=== PATIENT | male | born 1950 | race Caucasian/White ===

== ENCOUNTER → 2018-01-04 | Outpatient (CLI) | payer MEDICARE ==
[2015-08-16 18:05] VITALS: BP 129/75
[~2018-01-04] MED LIST: PRED5DRO16 RIGHTEYE
--- NOTE | 2018-01-04 13:28 | RAD ---
CT head without contrast 01/04/2018 Clinical indication: Headache. COMPARISON: None. *One or more of the following individualized dose reduction techniques were utilized for this examination: 1. Automated exposure control. 2. Adjustment of the mA and/or kV according to patient size. 3. Use of iterative reconstruction technique. FINDINGS: No acute intracranial hemorrhage or extra-axial fluid collection. No midline shift. The basal cisterns are patent. The rick-white matter interfaces are maintained. The ventricles and subarachnoid spaces are normal in size and configuration for age. The mastoid air cells and visualized paranasal sinuses are well aerated. IMPRESSION: No acute intracranial hemorrhage. Electronically signed by: Jadon Yuen MD (01/04/2018 1:24 PM) [id number]
== END | disposition home or self-care (01) ==
LOC: PMG 12:31
PROVIDERS: ATTEND Family Medicine
DX: H92.03 Otalgia, bilateral (principal)
CPT/HCPCS: 70450

== ENCOUNTER → 2018-02-20 | Outpatient (CLI) | payer MEDICARE, OTHER ==
[2015-08-16 18:05] VITALS: BP 129/75
[~2018-02-20] MED LIST changes: +ASPI81TA50 PO; +ATOR10TA PO
--- NOTE | 2018-02-20 11:35 | CARD ---
MR#: [id number] Date of Study: 02/20/2018 Ordering Physician: ROCHELLE NOGUERA, Referring Physician: ROCHELLE NOGUERA, Tech: Deborah Pinto AZEB APPROVED REPORT EXAM: Two-dimensional and M-mode echocardiogram with Doppler and color Doppler. Other Information Quality : Good INDICATION Syncope 2D DIMENSIONS RVDd2.5 (2.9-3.5cm)Left Atrium(2D)3.4 (1.6-4.0cm) IVSd1.0 (0.7-1.1cm)Aortic Root(2D)3.4 (2.0-3.7cm) LVDd5.1 (3.9-5.9cm)LVOT Diameter2.0 (1.8-2.4cm) PWd1.0 (0.7-1.1cm)LVDs3.3 (2.5-4.0cm) FS (%) 35.1 %SV80.9 ml LVEF(%)64.1 (>50%) Aortic Valve AoV Peak Chidi.158.4cm/sAoV VTI33.1cm AO Peak GR.10.0mmHgLVOT Peak Chidi.106.9cm/s LVOT VTI 22.52cmAO Mean GR.5mmHg BINDU (VMAX)2.61jm0YGE (VTI)2.17cm2 AI P 1/2 Rltx842gt Mitral Valve MV E Xjfliurm00.0cm/sMV DECEL YAJY440oh MV A Cnylnkud13.9cm/sE/A Ratio0.8 Tricuspid Valve TR P. Rkojeukp929mr/sRAP SHPFMXJE4faFb TR Peak Gr.03ahRjMTZT08urXi Pulmonary Vein S1 Eiimmcop53.1cm/sD2 Ulwkjzgw68.2cm/s LEFT VENTRICLE The left ventricle is normal size. There is normal left ventricular wall thickness. The left ventricu lar systolic function is normal and the ejection fraction is within normal range. The Ejection Fracti on is 60-65%. There is normal LV segmental wall motion. Transmitral Doppler flow pattern is Grade I-a bnormal relaxation pattern. RIGHT VENTRICLE The right ventricle is normal size. The right ventricular systolic function is normal. ATRIA The left atrium size is normal. The right atrium size is normal. The interatrial septum is intact wit h no evidence for an atrial septal defect or patent foramen ovale as noted on 2-D or Doppler imaging. AORTIC VALVE The aortic valve is calcified but opens well. Doppler and Color Flow revealed mild aortic regurgitati on. There is no significant aortic valvular stenosis. MITRAL VALVE The mitral valve is calcified but opens well. Mitral annular calcification is mild. There is no evide nce of mitral valve prolapse. There is no mitral valve stenosis. Doppler and Color-flow revealed mild mitral regurgitation. TRICUSPID VALVE The tricuspid valve is normal in structure and function. Doppler and Color Flow revealed trace tricus pid regurgitation. The PA pressure was estimated at 25 mmHg. There is no tricuspid valve stenosis. PULMONIC VALVE The pulmonic valve is not well visualized. Doppler and Color Flow revealed mild pulmonic valvular reg urgitation. There is no pulmonic valvular stenosis. GREAT VESSELS The aortic root is normal in size. The ascending aorta is mildly dilated at 3.9 cm. The IVC was not v isualized. PERICARDIAL EFFUSION There is no evidence of significant pericardial effusion. Critical Notification Critical Value: No <Conclusion> The left ventricular systolic function is normal and the ejection fraction is within normal range. Th e Ejection Fraction is 60-65%. There is normal LV segmental wall motion. Doppler and Color Flow revealed mild aortic regurgitation. The ascending aorta is mildly dilated at 3.9 cm. Signed by : Rochelle Noguera, Electronically Approved : 02/20/2018 11:34:37
== END | disposition home or self-care (01) ==
LOC: ECHO 10:00
PROVIDERS: ATTEND Internal Medicine Cardiovascular Disease
DX: I08.0 Rheumatic disorders of both mitral and aortic valves (principal)
CPT/HCPCS: 93306

== ENCOUNTER → 2018-02-21 | Outpatient (CLI) | payer MEDICARE, OTHER ==
[2015-08-16 18:05] VITALS: BP 129/75
[~2018-02-21] VITALS: Ht 175.3 cm; Wt 86.2 kg
[2018-02-21] MEDS: REGADENOSON 0.4 MG/5 ML DISP.SYRIN. IV ONE (10:49)
--- NOTE | 2018-02-21 12:46 | RAD ---
MR#: [id number] Date of Study: 02/21/2018 Ordering Physician: ROCHELLE NOGUERA, Referring Physician: SHAHEED CARVALHO Tech: CHITO Velasco ARRT (Jose) (N) APPROVED REPORT Test Type: Pharmacological Stress Nurse/Tech: MOHSEN Escobedo Test Indications: cac score >400 Cardiac History: High cholesterol, Family history Medications: See Electronic Medical Record Medical History: See Electronic Medical Record Resting ECG: SB, LAD, DRWP, NS NO CHANGES Resting Heart Rate: 58 bpm Resting Blood Pressure: 118/68mmHg Pretest Chest Pain: None Nurse/Tech Notes Consent: The procedure was explained to the patient in lay terms. Informed consent was witnessed. Ke eout was entered into [employer]. History and Stress Test performed by CHITO Velasco ARRT (R) (N) Pharm. Details Pharmacologic stress testing was performed using 0.4mg per 5ml of regadenoson given intravenously ove r 7-10 seconds. Stress Symptoms FATIGUE,SOB POST EXERCISE Reason for Termination: Infusion complete Target HR: No Max HR: 86 bpm 66% of Maximum Predicted HR: 130 bpm Exercise duration: 6 min:sec, Stage Max Blood Pressure: 115/71mmHg Blood Pressure response to exercise: Normal blood pressure response during stress. Chest Pain: No. Arrhythmia: No. INTERPRETATION Stress EKG Conclusion: The resting EKG shows a sinus rhythm with minimal nonspecific ST segment chavez es. The stress EKG shows no significant changes from baseline. No EKG evidence of stressed induced ischemia. Imaging Protocol IMAGE PROTOCOL: Rest Tc-99m/stress Tc-99m 1 day Rest: Stress: Viability: Radiopharm.Tc99m VpbpxdzehPs62l Sestamibi Xotn17uZi 33mCi Img Date 02/21/2018 02/21/2018 Inj-Img Ybgo64fgj. 60min. Rest Admin Site:IV - Right AntecubitalAdministrator: CHITO Velasco ARRT (Jose)(N) Stress Admin Site: IV - Right AntecubitalAdministrator: Tabatha Herrera, NMTCB, ARRT (R)(N) STRESS DATA End Diast. Vol.104.0mlAv. Heart Rate69.0bpm LVEDV index BSA2.0mlCardiac Output0.1L/min End Syst. Vol.27.0mlCO Index BSA5.3L/min LVESV index BSA0.0mlMyocardial Hpeg574.0g Eject. Ftsseojj48.0% Stress Rates Pk. Fill Rate2.70EDV/secLVtime Pk. Fill 220.97msec Pk. Empty Rate4.41ESV/secLVtime Pk. Racwu131.01msec 09/06 Pk. Fill1.24EDV/sec Stress Scores Regional WT0.00Summed WT0.00 Regional WM0.00Summed WM0.00 LV Perfusion The stress scans show a small defect at the apex. The rest scans show a small defect at the apex. Nuclear imaging shows no reversible ischemia. Nuclear imaging has a small fixed apical defect probably secondary to technical factors. Wall Motion Left ventricular systolic function is normal with no regional wall motion abnormalities and an ejecti on fraction of greater than 70%. LV Perf. Quant 17 Seg. SSS0.00 17 Seg. SRS1.00 17 Seg. SDS0.00 Stress Defect Extent (% LAD)2.50Rest Defect Extent (% LAD)1.90Rev. Defect Extent (% LAD)0.00 Stress Defect Extent (% LCX) 0.00Rest Defect Extent (% LCX)0.00Rev. Defect Extent (% LCX)0.00 Stress Defect Extent (% RCA)0.00Rest Defect Extent (% RCA)0.00Rev. Defect Extent (% RCA)0.00 Stress Defect Extent (% YONNY)1.50Rest Defect Extent (% YONNY)0.70Rev. Defect Extent (% YONNY)0.70 Conclusion 1. No EKG evidence of stressed induced ischemia. 2. Nuclear imaging shows no reversible ischemia. 3. Nuclear imaging has a small fixed apical defect probably secondary to technical factors. 4. Left ventricular systolic function is normal with no regional wall motion abnormalities and an eje ction fraction of greater than 70%. 5. Moderately low to low risk Lexiscan nuclear stress test. Signed by : Roman Eugene MD Electronically Approved : 02/21/2018 12:45:48
== END | disposition home or self-care (01) ==
LOC: NM 07:58
PROVIDERS: ATTEND Internal Medicine Cardiovascular Disease
DX: R93.8 Abnormal findings on diagnostic imaging of other specified body structures (principal); E78.00 Pure hypercholesterolemia, unspecified
CPT/HCPCS: 78452; 93017; 96374; 96375; 96376; A9500; J2785

== ENCOUNTER → 2018-04-11 | Outpatient (CLI) | payer OTHER ==
[2015-08-16 18:05] VITALS: BP 129/75
--- NOTE | 2018-04-11 13:21 | RAD ---
History: Pain, swelling, bruising of the great toe after dropping object. Comparison: None. Findings: AP, lateral, and oblique views of the left foot. Comminuted, nondisplaced fracture is seen involving the 1st distal phalanx with the fracture lines involving the tuft as well as the body and the base; fracture component involving the base extends into the interphalangeal joint. On the frontal view, small ossific density is seen adjacent to the lateral distal aspect of the 1st proximal phalanx, could represent minimal 1st proximal phalangeal fracture. There is soft tissue swelling of the great toe. Large Achilles tendon and small plantar calcaneal enthesophytes are seen. Impression: 1. Comminuted, acute 1st distal phalangeal fracture. As this is subungual, this is presumably open. 2. Small ossific density adjacent to the distal lateral aspect of the 1st proximal phalanx, could be additional fracture. Electronically signed by: Nguyễn West MD (04/11/2018 1:18 PM) [facility]
== END | disposition home or self-care (01) ==
LOC: PMG 10:16
PROVIDERS: ATTEND Neuromusculoskeletal Medicine & OMM
DX: S92.425A Nondisplaced fracture of distal phalanx of left great toe, initial encounter for closed fracture (principal); M79.89 Other specified soft tissue disorders; I25.10 Atherosclerotic heart disease of native coronary artery without angina pectoris; E78.00 Pure hypercholesterolemia, unspecified; X58.XXXA Exposure to other specified factors, initial encounter; Y93.89 Activity, other specified; Y92.89 Other specified places as the place of occurrence of the external cause; Y99.8 Other external cause status
CPT/HCPCS: 73630

== ENCOUNTER → 2019-03-25 | Outpatient (CLI) | payer OTHER ==
[2015-08-16 18:05] VITALS: BP 129/75
--- NOTE | 2019-03-25 16:51 | RAD ---
EXAM: PA and Lateral Views of the Chest DATE: 03/25/2019 12:00 AM INDICATION: Cough COMPARISON: No Prior FINDINGS: The heart is not enlarged. Heart is moderately tortuous. No focal parenchymal airspace opacity. No pleural effusion or pneumothorax. IMPRESSION: No evidence for acute cardiac pulmonary process. Electronically signed by: Lance Tobias MD (03/25/2019 4:48 PM) [facility]
== END | disposition home or self-care (01) ==
LOC: PMG 10:15
PROVIDERS: ATTEND Registered Nurse
DX: R05 Cough (principal)
CPT/HCPCS: 71046

== ENCOUNTER → 2019-08-26 | Outpatient (CLI) | payer OTHER ==
[2015-08-16 18:05] VITALS: BP 129/75
--- NOTE | 2019-08-26 16:57 | RAD ---
EXAM: CHEST 2 VIEWS. HISTORY: Cough. COMPARISON: 03/25/2019. FINDINGS: Frontal and lateral views of the chest are obtained. The inspiration is relatively small. There are no confluent infiltrates. There is no pneumothorax or pleural effusion. The heart is not enlarged. The aorta is tortuous. IMPRESSION: 1. No confluent infiltrates. Electronically signed by: Henny Naik MD (08/26/2019 4:54 PM) [facility]
== END | disposition home or self-care (01) ==
LOC: PMG 16:06
PROVIDERS: ATTEND Registered Nurse
DX: R05 Cough (principal)
CPT/HCPCS: 71046

== ENCOUNTER → 2019-09-16 | Outpatient (CLI) | payer OTHER ==
[2015-08-16 18:05] VITALS: BP 129/75
--- NOTE | 2019-09-16 11:12 | RAD ---
EXAM: CHEST PA LATERAL INDICATION: Follow-up pneumonia. TECHNIQUE: PA and lateral views COMPARISON: 08/26/2019 FINDINGS: The heart size is normal. Great vessels show aortic tortuosity. There is no hilar or mediastinal mass. The lungs are clear. There is no pleural effusion or pneumothorax. There are no significant osseous abnormalities. IMPRESSION: No active cardiopulmonary disease. Electronically signed by: Sol Shi MD (09/16/2019 11:08 AM) [facility]
== END | disposition home or self-care (01) ==
LOC: PMG 10:21
PROVIDERS: ATTEND Registered Nurse
DX: R05 Cough (principal)
CPT/HCPCS: 71046

== ENCOUNTER → 2019-10-02 | Outpatient (CLI) | payer MEDICARE ==
[2015-08-16 18:05] VITALS: BP 129/75
--- NOTE | 2019-10-02 12:49 | RAD ---
EXAM: Chest, single view. HISTORY: Cough. COMPARISON: 09/16/2019 FINDINGS: 2 views of the chest are obtained. There is slight increased right upper lobe opacity likely due to asymmetric overlying soft tissue. No consolidation, pleural effusion or pneumothorax is seen. The heart is normal in size. There is an incidental tortuous thoracic aorta. IMPRESSION: No acute thoracic finding. Electronically signed by: Ese Velasco MD (10/02/2019 12:46 PM) [facility] [place]
== END | disposition home or self-care (01) ==
LOC: DXRAD 10:22
PROVIDERS: ATTEND Registered Nurse
DX: R05 Cough (principal)
CPT/HCPCS: 71046

== ENCOUNTER 2019-10-17 10:07 | Emergency (ER) | payer MEDICARE ==
[~2019-10-17] VITALS: Ht 175.3 cm; Wt 89.0 kg
[2019-10-17 10:43] LABS: BASO % 0 % (0-3); EOS # 0.1 x10^3/uL (0.0-0.7); EOS % 1 % (0-3); HEMATOCRIT 43.8 % (39.0-53.0); HEMOGLOBIN 14.8 g/dL (13.0-17.5); LYMPH # 1.6 x10^3/uL (1.0-4.8); LYMPH % 17 % (24-48); MEAN CORPUSCULAR HEMOGLOBIN 30 pg (25-35); MEAN CORPUSCULAR HGB CONC 34 g/dL (31-37); MEAN CORPUSCULAR VOLUME 89 fL (79-100); MONO # 0.8 x10^3/uL (0.0-1.1); MONO % 9 % (0-9); NEUT # 6.8 x10^3uL (1.8-7.7); NEUT % 73 % (31-73); PLATELET COUNT 202 x10^3/uL (140-400); RED CELL DISTRIBUTION WIDTH 14.5 % (11.5-14.5); WHITE BLOOD COUNT 9.4 x10^3/uL (4.0-11.0)
[2019-10-17] MEDS ORDERED: IV NORMAL SALINE 1,000ML 1,000 ML IV ONE (10:45)
[2019-10-17] MEDS ORDERED: MORPHINE SULFATE 4 MG/ML DISP.SYRIN. IV ONE (10:45)
[2019-10-17] MEDS ORDERED: KETOROLAC 15 MG/ML VIAL. IV ONE (10:45)
[2019-10-17 10:47] LABS: CALCIUM 8.5 mg/dL (8.5-10.1); CREATININE 1.1 mg/dL (0.7-1.3); GFR 66.6; POTASSIUM 4.4 mmol/L (3.5-5.1)
[2019-10-17 10:53] LABS: ALBUMIN 3.7 g/dL (3.4-5.0); ALBUMIN/GLOBULIN RATIO 1.2 (1.0-1.7); TOTAL BILIRUBIN 0.4 mg/dL (0.2-1.0); TOTAL PROTEIN 6.9 g/dL (6.4-8.2)
[2019-10-17] MEDS ORDERED: ONDA4TAB12 PO (10:58)
[2019-10-17] MEDS ORDERED: HYDR-3165 PO (10:58)
[2019-10-17] MEDS ORDERED: TAMS0.4C97 PO (10:58)
--- NOTE | 2019-10-17 11:05 | RAD ---
CT Abdomen and Pelvis without contrast History: Left flank pain Technique: Noncontrast CT imaging was performed of the abdomen and pelvis. Multiplanar images are reviewed. Exposure: One or more of the following individualized dose reduction techniques were utilized for this examination: 1. Automated exposure control 2. Adjustment of the mA and/or kV according to patient size 3. Use of iterative reconstruction technique. Comparison: None other than chest CT April 03, 2019 Findings: There is approximate 2 mm calculus at the left ureterovesical junction, very mild left hydroureter and some variable mild strandy change about the left ureter. There is very mild left hydronephrosis. There is approximate 1 mm mid left renal calculus, also probable punctate calculus inferiorly. There is small 2 mm inferior right renal calculus. There is 13 mm hypodense lesion of the inferior right kidney most likely a cyst, 14 density measurements 11 Hounsfield units. There is 14 mm exophytic focus at density of the posterior superior left kidney also likely a cyst. Small approximate 2 mm left lower lobe pulmonary nodule image 5 series 2 is stable. There is no pleural fluid of the visualized lung bases. There is some coronary calcification. Accurate evaluation of abdominal visceral organs is limited without intravenous contrast. Gallbladder is present without obvious intraluminal abnormality by CT. There is no obvious focal abnormality of the spleen, liver, or pancreas. There is no adrenal nodularity. Accurate evaluation of bowel is limited without oral contrast. Appendix caliber is within normal limits without adjacent inflammatory change, mild hyperdensity in the lumen which may be hyperdense stool rather than appendicolith. There is mild scattered colonic diverticulosis. There is small hiatal hernia. There is no significant free air, free fluid, bowel dilatation. There is multilevel lumbar facet degenerative change. There is minimal grade 1 anterior spondylolisthesis at L4-5. There is degenerative disc disease greatest at L1-L2. Impression: 1. There is very mild left hydroureteronephrosis, small 2 mm calculus at the left ureterovesical junction. There are small bilateral renal calculi. There are bilateral renal cysts. 2. There is some coronary calcification. 3. There is small hiatal hernia. 4. There is mild colonic diverticulosis. Electronically signed by: William Gibbons MD (10/17/2019 11:02 AM) [facility]
[2019-10-17] MEDS ORDERED: ONDANSETRON PF 4 MG/2 ML VIAL. IV ONE (11:15)
[2019-10-17 11:55] LABS: BACTERIA,URINE FEW /HPF (0-FEW); BILIRUBIN,URINE NEG (NEG); CLARITY,URINE HAZY; COLOR,URINE YELLOW; GLUCOSE,URINE NEG (NEG); NITRITE,URINE NEG (NEG); SQUAMOUS EPITHELIAL CELL,UR OCC /LPF; UROBILINOGEN,URINE 0.2 mg/dL (0.2 mg/dL)
[2019-10-17 11:56] LABS: HYALINE CASTS, URINE OCC /HPF
[2019-10-17 12:00] VITALS: BP 116/70
--- NOTE | 2019-10-17 13:07 | PHYS DOC ---
Past History Past Medical History: CAD, High Cholesterol, Other Additional Past Medical Histor: AORTIC ANEURYSM Past Surgical History: Other Additional Past Surgical Histo: SURGERY FOR RETINAL DETACHMENT Alcohol Use: Occasionally Drug Use: None Adult General Chief Complaint Chief Complaint: FLANK PAIN HPI HPI Patient is a 69-year-old male presenting with flank pain left-sided onset this morning worsening positive nausea no vomiting no fever no chest pain or shortness of breath symptoms are moderate no urinary symptoms does feel the urge to defecate at times but has not done so Review of Systems Review of Systems Constitutional: Denies fever or chills [] Eyes: Denies change in visual acuity, redness, or eye pain [] HENT: Denies nasal congestion or sore throat [] Respiratory: Denies cough or shortness of breath [] Cardiovascular: No additional information not addressed in HPI [] GI: Neurologic: Denies headache, focal weakness or sensory changes [] Endocrine: Denies polyuria or polydipsia [] All other systems were reviewed and found to be within normal limits, except as documented in this note. Current Medications Current Medications Current Medications Medications (Trade) Dose Ordered Sig/Hayden Start Time Stop Time Status Last Admin Dose Admin Ketorolac Tromethamine (Toradol 15mg Vial) 15 mg 1X ONCE 10/17/19 10:45 10/17/19 10:46 DC 10/17/19 10:52 15 MG Morphine Sulfate (Morphine 4mg Syringe) 4 mg 1X ONCE 10/17/19 10:45 10/17/19 10:46 DC 10/17/19 10:43 4 MG Ondansetron HCl (Zofran) 4 mg 1X ONCE 10/17/19 11:15 10/17/19 11:16 DC 10/17/19 10:51 4 MG Sodium Chloride 1,000 ml @ 1,000 mls/hr 1X ONCE 10/17/19 10:45 10/17/19 11:44 DC 10/17/19 10:52 1,000 MLS/HR Allergies Allergies Allergies Coded Allergies Type Severity Reaction Last Updated Verified No Known Drug Allergies 08/16/15 No Physical Exam Physical Exam Constitutional: Well developed, well nourished, no acute distress, non-toxic a ppearance. [] HENT: Normocephalic, atraumatic, bilateral external ears normal, oropharynx moist, no oral exudates, nose normal. [] Eyes: PERRLA, EOMI, conjunctiva normal, no discharge. [] Neck: Normal range of motion, no tenderness, supple, no stridor. [] Cardiovascular:Heart rate regular rhythm, no murmur [] Lungs & Thorax: Bilateral breath sounds clear to auscultation [] Abdomen: Bowel sounds normal, soft, no tenderness, no masses, no pulsatile masses. [] Skin: Warm, dry, no erythema, no rash. [] Back: N positive CVA tenderness on the left Extremities: No tenderness, no cyanosis, no clubbing, ROM intact, no edema. [] Neurologic: Alert and oriented X 3, normal motor function, normal sensory function, no focal deficits noted. [] Psychologic: Affect normal, judgement normal, mood normal. [] Current Patient Data Vital Signs Vital Signs Date Time Temp Pulse Resp B/P (MAP) Pulse Ox O2 Delivery O2 Flow Rate FiO2 10/17/19 10:43 18 10/17/19 10:10 98.2 60 130/81 (97) 97 Room Air Lab Results Laboratory Tests Test 10/17/19 10:22 10/17/19 11:36 White Blood Count 9.4 x10^3/uL (4.0-11.0) Red Blood Count 4.90 x10^6/uL (4.30-5.70) Hemoglobin 14.8 g/dL (13.0-17.5) Hematocrit 43.8 % (39.0-53.0) Mean Corpuscular Volume 89 fL (79-100) Mean Corpuscular Hemoglobin 30 pg (25-35) Mean Corpuscular Hemoglobin Concent 34 g/dL (31-37) Red Cell Distribution Width 14.5 % (11.5-14.5) Platelet Count 202 x10^3/uL (140-400) Neutrophils (%) (Auto) 73 % (31-73) Lymphocytes (%) (Auto) 17 % (24-48) L Monocytes (%) (Auto) 9 % (0-9) Eosinophils (%) (Auto) 1 % (0-3) Basophils (%) (Auto) 0 % (0-3) Neutrophils # (Auto) 6.8 x10^3uL (1.8-7.7) Lymphocytes # (Auto) 1.6 x10^3/uL (1.0-4.8) Monocytes # (Auto) 0.8 x10^3/uL (0.0-1.1) Eosinophils # (Auto) 0.1 x10^3/uL (0.0-0.7) Basophils # (Auto) 0.0 x10^3/uL (0.0-0.2) Sodium Level 143 mmol/L (136-145) Potassium Level 4.4 mmol/L (3.5-5.1) Chloride Level 107 mmol/L (98-107) Carbon Dioxide Level 28 mmol/L (21-32) Anion Gap 8 (6-14) Blood Urea Nitrogen 20 mg/dL (8-26) Creatinine 1.1 mg/dL (0.7-1.3) Estimated GFR (Cockcroft-Gault) 66.6 BUN/Creatinine Ratio 18 (6-20) Glucose Level 116 mg/dL (70-99) H Calcium Level 8.5 mg/dL (8.5-10.1) Total Bilirubin 0.4 mg/dL (0.2-1.0) Aspartate Amino Transferase (AST) 18 U/L (15-37) Alanine Aminotransferase (ALT) 38 U/L (16-63) Alkaline Phosphatase 68 U/L (46-116) Total Protein 6.9 g/dL (6.4-8.2) Albumin 3.7 g/dL (3.4-5.0) Albumin/Globulin Ratio 1.2 (1.0-1.7) Urine Collection Type Unknown Urine Color Yellow Urine Clarity Hazy Urine pH 5.5 Urine Specific Cookson >=1.030 Urine Protein Neg (NEG-TRACE) Urine Glucose (UA) Neg mg/dL (NEG) Urine Ketones (Stick) Neg mg/dL (NEG) Urine Blood Mod (NEG) Urine Nitrite Neg (NEG) Urine Bilirubin Neg (NEG) Urine Urobilinogen Dipstick 0.2 mg/dL (0.2 mg/dL) Urine Leukocyte Esterase Neg (NEG) Urine RBC 11-20 /HPF (0-2) Urine WBC 1-4 /HPF (0-4) Urine Squamous Epithelial Cells Occ /LPF Urine Bacteria Few /HPF (0-FEW) Urine Hyaline Casts Occ /HPF Urine Mucus Marked /LPF EKG EKG [] Radiology/Procedures Radiology/Procedures [] Impressions: Impression: 1. There is very mild left hydroureteronephrosis, small 2 mm calculus at the left ureterovesical junction. There are small bilateral renal calculi. There are bilateral renal cysts. 2. There is some coronary calcification. 3. There is small hiatal hernia. 4. There is mild colonic diverticulosis. Electronically signed by: William Gibbons MD (10/17/2019 11:02 AM) [facility] Course & Med Decision Making Course & Med Decision Making Pertinent Labs and Imaging studies reviewed. (See chart for details) []Renal colic pain controlled well-appearing urine negative much better after morphine in total in the emergency room return precautions discussed patient voiced understanding Dragon Disclaimer Dragon Disclaimer This electronic medical record was generated, in whole or in part, using a voice recognition dictation system. Departure Departure: Impression: Primary Impression: Kidney stone Disposition: 01 HOME, SELF-CARE Condition: STABLE Patient Instructions: Kidney Stones, [id number]-lp-[id number] Additional Instructions: Impression: 1. There is very mild left hydroureteronephrosis, small 2 mm calculus at the left ureterovesical junction. There are small bilateral renal calculi. There are bilateral renal cysts. 2. There is some coronary calcification. 3. There is small hiatal hernia. 4. There is mild colonic diverticulosis. Scripts Tamsulosin Hcl (FLOMAX) 0.4 Mg Cap.er.24h 1 CAP PO DAILY for kidney stone, #30 CAP 0 Refills Prov: CARMEN OVIEDO MD 10/17/19 Ondansetron (ONDANSETRON ODT) 4 Mg Tab.rapdis 1 TAB PO PRN Q6-8HRS PRN for NAUSEA/VOMITING, #10 TAB Prov: CARMEN OVIEDO MD 10/17/19 Hydrocodone Bit/Acetaminophen (NORCO 5-325 TABLET) 1 Each Tablet 1-2 TAB PO Q4-6HRS PRN for PAIN, #15 TAB Prov: CARMEN OVIEDO MD 10/17/19 CARMEN OVIEDO MD Oct 17, 2019 13:07
== END 2019-10-17 12:25 | disposition home or self-care (01) ==
LOC: ER 10:07
DX: N20.0 Calculus of kidney (principal); I25.10 Atherosclerotic heart disease of native coronary artery without angina pectoris; E78.5 Hyperlipidemia, unspecified
CPT/HCPCS: 36415; 74176; 80053; 81001; 85025; 96374; 96375; 99284; J1885; J2270; J2405; J7030

== ENCOUNTER → 2020-06-02 | Outpatient (CLI) | payer MEDICARE ==
[~2020-06-02] MED LIST changes: +HYDR-3165 PO; +ONDA4TAB12 PO; +TAMS0.4C97 PO
--- NOTE | 2020-06-02 15:08 | CARD ---
MR#: [id number] Date of Study: 06/02/2020 Ordering Physician: ROCHELLE NOGUERA, Referring Physician: ROCHELLE NOGUERA, Tech: Deborah Pinto [facility] APPROVED REPORT EXAM: Two-dimensional and M-mode echocardiogram with Doppler and color Doppler. Other Information Quality : Good INDICATION Ascending Aortic Aneursym 2D DIMENSIONS RVDd3.2 (2.9-3.5cm)Left Atrium(2D)3.8 (1.6-4.0cm) IVSd1.1 (0.7-1.1cm)Aortic Root(2D)3.3 (2.0-3.7cm) LVDd5.3 (3.9-5.9cm)LVOT Diameter2.2 (1.8-2.4cm) PWd1.1 (0.7-1.1cm)LVDs2.6 (2.5-4.0cm) FS (%) 30.0 %SV109.5 ml LVEF(%)60.0 (>50%) Aortic Valve AoV Peak Chidi.161.3cm/sAoV VTI32.2cm AO Peak GR.10.4mmHgLVOT Peak Chidi.123.7cm/s LVOT VTI 27.85cmAO Mean GR.6mmHg BINDU (VMAX)2.51tr5NYZ (VTI)3.37cm2 AI P 1/2 Bbnf934qa Mitral Valve MV E Gizonzwq35.8cm/sMV DECEL PQBZ774sk MV A Coaxrvol98.3cm/sE/A Ratio0.6 Tricuspid Valve TR P. Blvgezkd999bk/sRAP VYQIIRFZ5siWe TR Peak Gr.91msTeBLTA12duAg Pulmonary Vein S1 Bnotjmxf41.2cm/sD2 Tscjotmj56.5cm/s LEFT VENTRICLE The left ventricle is normal size. There is normal left ventricular wall thickness. The left ventricu lar systolic function is normal and the ejection fraction is within normal range. The Ejection Fracti on is 55-60%. There is normal LV segmental wall motion. Transmitral Doppler flow pattern is Grade I-a bnormal relaxation pattern. RIGHT VENTRICLE The right ventricle is normal size. The right ventricular systolic function is normal. ATRIA The left atrium size is normal. The right atrium size is normal. The interatrial septum is intact wit h no evidence for an atrial septal defect or patent foramen ovale as noted on 2-D or Doppler imaging. AORTIC VALVE The aortic valve is calcified but opens well. Doppler and Color Flow revealed mild to moderate aortic regurgitation. There is no significant aortic valvular stenosis. MITRAL VALVE The mitral valve is calcified but opens well. There is no evidence of mitral valve prolapse. There is no mitral valve stenosis. Doppler and Color-flow revealed trace mitral regurgitation. TRICUSPID VALVE The tricuspid valve is normal in structure and function. Doppler and Color Flow revealed physiologica l tricuspid regurgitation. The PA pressure was estimated at 30 mmHg. There is no tricuspid valve sten osis. PULMONIC VALVE The pulmonic valve is not well visualized. Doppler and Color Flow revealed mild pulmonic valvular reg urgitation. There is no pulmonic valvular stenosis. GREAT VESSELS The aortic root is normal in size. The ascending aorta is moderately dilated at 4.1 cm. The IVC was n ot visualized. PERICARDIAL EFFUSION There is no evidence of significant pericardial effusion. Critical Notification Critical Value: No <Conclusion> The left ventricular systolic function is normal and the ejection fraction is within normal range. Th e Ejection Fraction is 55-60%. There is normal LV segmental wall motion. Doppler and Color Flow revealed mild to moderate aortic regurgitation. The ascending aorta is moderately dilated at 4.1 cm. Signed by : Rochelle Noguera, Electronically Approved : 06/02/2020 15:07:51
== END | disposition home or self-care (01) ==
LOC: ECHO 13:57
PROVIDERS: ATTEND Internal Medicine Cardiovascular Disease
DX: I08.8 Other rheumatic multiple valve diseases (principal); I71.2 Thoracic aortic aneurysm, without rupture
CPT/HCPCS: 93306

== ENCOUNTER → 2021-01-15 | Outpatient (CLI) | payer MEDICARE ==
[2021-01-15 17:03] LABS: ALBUMIN 3.5 g/dL (3.4-5.0); ALBUMIN/GLOBULIN RATIO 1.1 (1.0-1.7); CALCIUM 8.7 mg/dL (8.5-10.1); CREATININE 1.1 mg/dL (0.7-1.3); GFR 66.4; POTASSIUM 4.2 mmol/L (3.5-5.1); TOTAL BILIRUBIN 0.3 mg/dL (0.2-1.0); TOTAL PROTEIN 6.6 g/dL (6.4-8.2)
== END ==
LOC: LAB 15:35
PROVIDERS: ATTEND Internal Medicine Cardiovascular Disease
DX: E78.5 Hyperlipidemia, unspecified (principal)
CPT/HCPCS: 36415; 80053; 80061

== ENCOUNTER 2021-02-28 18:05 | Emergency (ER) | payer MEDICARE ==
[~2021-02-28] VITALS: Ht 172.7 cm; Wt 89.0 kg
--- NOTE | 2021-02-28 18:20 | PHYS DOC ---
Past History Past Medical History: CAD, High Cholesterol, Other Additional Past Medical Histor: AORTIC ANEURYSM Past Surgical History: Other Additional Past Surgical Histo: SURGERY FOR RETINAL DETACHMENT Alcohol Use: Occasionally Drug Use: None General Adult HPI: HPI: "I was going down a hill on wet grass and I slipped and went down with my Lt. knee hyper extend.. I was able to ortiz do stuff for another 3 hrs.. but now the knee is so swollen I can't walk on it..." Patient is a 70 year old male who presents with above hx and complaints of left knee pain and edema. Patient had a fall earlier in the day on wet grass and hyperextended left knee. Patient advised he did hear a slight pop but was able to walk on knee and do yard work for the next 3 hours. But now her knee has become much more swollen and painful. Patient denies history of previous knee injury. Patient currently unable to do straight leg lift without significant pain. Does have marked edema. Unable to bend the knee completely. Distal neurovascular intact. And is equal to right leg. Patient does have a si gnificant medical history of coronary artery disease. Pt. follows with Dr. Peck. Review of Systems: Review of Systems: Constitutional: Denies fever or chills Eyes: Denies change in visual acuity HENT: Denies nasal congestion or sore throat Respiratory: Denies cough or shortness of breath Cardiovascular: Denies chest pain or edema GI: Denies abdominal pain, nausea, vomiting, bloody stools or diarrhea : Denies dysuria Musculoskeletal: Complains of left knee pain after fall Integument: Denies rash Neurologic: Denies headache, focal weakness or sensory changes Endocrine: Denies polyuria or polydipsia Lymphatic: Denies swollen glands Psychiatric: Denies depression or anxiety Family History: Family History: Noncontributory presentation Current Medications: Current Meds: See nursing for home meds Allergies: Allergies: Allergies Coded Allergies Type Severity Reaction Last Updated Verified No Known Drug Allergies 08/16/15 No Physical Exam: PE: Constitutional: inacute distress, non-toxic appearance. [] HENT: Normocephalic, atraumatic, bilateral external ears normal, oropharynx moist, no oral exudates, nose normal. [] Eyes: PERRLA, EOMI, conjunctiva normal, no discharge. [] Neck: Normal range of motion, no tenderness, supple, no stridor. [] Cardiovascular:Heart rate regular rhythm, no murmur. PMI to left Lungs & Thorax: Bilateral breath sounds equal apex auscultation [] scar Abdomen: Bowel sounds normal, soft, no tenderness, no masses, no pulsatile masses. Obese Skin: Warm, dry, no erythema, no rash. [] Back: No tenderness, no CVA tenderness. [] Extremities: No tenderness, no cyanosis, no clubbing, ROM intact, no edema. [] Except left knee findings as per HPI Neurologic: Alert and oriented X 3, normal motor function, normal sensory function, no focal deficits noted. [] Psychologic: Affect anxious, judgement normal, mood normal. [] EKG: EKG: [] Radiology/Procedures: Radiology/Procedures: [][place] [address] IMAGING REPORT Signed PATIENT: ENOCH JOE ACCOUNT: [id number] : 1950 LOCATION: ER AGE: 70 SEX: M EXAM STATUS: REG ER ORD. PHYSICIAN: LULÚ PRIETO MD REASON: fall, PAIN, SWELLING, STIFFNESS PROCEDURE: KNEE LEFT 4V XR KNEE _4 VIEWS WITH PATELLA_LT dated 02/28/2021 7:27 PM. History: Reason: fall, PAIN, SWELLING, STIFFNESS / Spl. Instructions: / History: Comparison: None. Findings: No fracture or dislocation is seen. There is mild narrowing of the medial compartment. Lateral view suggests there is a fairly large effusion in the suprapatellar bursa. Impression: 1. Joint effusion. No acute bony abnormality. Electronically signed by: Thomas Carrillo Jr., MD (02/28/2021 9:21 PM) [facility] DICTATED AND SIGNED BY: THOMAS CARRILLO Jr, MD DATE: 02/28/212119 CC: LULÚ PRIETO MD; KANWAL PECK MD ~MTH0 0 Heart Score: C/O Chest Pain: N/A Risk Factors: Risk Factors: DM, Current or recent (<one month) smoker, HTN, HLP, family history of CAD, obesity. Risk Scores: Score 0 - 3: 2.5% MACE over next 6 weeks - Discharge Home Score 4 - 6: 20.3% MACE over next 6 weeks - Admit for Clinical Observation Score 7 - 10: 72.7% MACE over next 6 weeks - Early Invasive Strategies Course & Med Decision Making: Course & Med Decision Making Pertinent Labs and Imaging studies reviewed. (See chart for details) Patient is avoid weightbearing. Ice packs. Wear splint. Use crutches. Must follow-up with orthopedics. Suspect patient has some ligamental disruption possibly Cruciate. Take Tylenol and ibuprofen for pain. Ref. to [facility] - orthro. Distal neurovascular intact after application of splint. Patient may take Vicoprofen up to 4 times a day for marked pain. Impression: 1. Slip and fall 2. Left knee hyperextension injury [] Dragon Disclaimer: Dragloyd Disclaimer: This electronic medical record was generated, in whole or in part, using a voice recognition dictation system. Departure Departure: Referrals: KANWAL PECK MD (PCP) Scripts Hydrocodone/Ibuprofen (HYDROCODONE-IBUPROFEN 7.5-200 ) 1 Each Tablet 1 TAB PO PRN Q6HRS PRN for PAIN, #30 TAB 0 Refills Prov: LULÚ PRIETO MD 02/28/21 LULÚ PRIETO MD Feb 28, 2021 18:20
[2021-02-28] MEDS ORDERED: MORPHINE SULFATE 10 MG/ML SYRINGE. SQ ONE (19:30)
[2021-02-28] MEDS ORDERED: HYDR-1179 PO ×2 (20:05→20:14)
[2021-02-28 20:30] VITALS: BP 124/80
--- NOTE | 2021-02-28 21:24 | RAD ---
XR KNEE _4 VIEWS WITH PATELLA_LT dated 02/28/2021 7:27 PM. History: Reason: fall, PAIN, SWELLING, STIFFNESS / Spl. Instructions: / History: Comparison: None. Findings: No fracture or dislocation is seen. There is mild narrowing of the medial compartment. Lateral view s uggests there is a fairly large effusion in the suprapatellar bursa. Impression: 1. Joint effusion. No acute bony abnormality. Electronically signed by: Roman Carrillo Jr., MD (02/28/2021 9:21 PM) [facility]
== END 2021-02-28 20:30 | disposition home or self-care (01) ==
LOC: ER 18:05
DX: S89.82XA Other specified injuries of left lower leg, initial encounter (principal); I25.10 Atherosclerotic heart disease of native coronary artery without angina pectoris; E78.00 Pure hypercholesterolemia, unspecified; W01.0XXA Fall on same level from slipping, tripping and stumbling without subsequent striking against object, initial encounter; Y93.89 Activity, other specified; Y92.828 Other wilderness area as the place of occurrence of the external cause; Y99.8 Other external cause status
CPT/HCPCS: 29505; 73564; 96372; 99284; J2270

== ENCOUNTER → 2021-05-05 | Outpatient (CLI) | payer MEDICARE ==
[~2021-05-05] MED LIST changes: +HYDR-1179 PO
--- NOTE | 2021-05-05 16:17 | RAD ---
MR#: [id number] Date of Study: 05/05/2021 Ordering Physician: ROCHELLE NOGUERA, Referring Physician: SHAHEED CARVALHO Tech: CHITO Velasco ARRT (R) (N) APPROVED REPORT Test Type: Exercise Stress Nurse/Tech: MOHSEN Luna Test Indications: dyspnea Cardiac History: See Electronic Medical Record Medications: See Electronic Medical Record Medical History: See Electronic Medical Record Resting ECG: SR Resting Heart Rate: 59 bpm Resting Blood Pressure: 146/70mmHg Pretest Chest Pain: None Nurse/Tech Notes SR, NO SIGNFICANT ACUTE CHANGES WITH STRESS Consent: The procedure was explained to the patient in lay terms. Informed consent was witnessed. Ke eout was entered into eventuosity. History and Stress Test performed by CHITO Velasco ARRT (R) (N) Stress Symptoms Dyspnea POST EXERCISE Reason for Termination: Reached target heart rate Target HR: Yes Max HR: 135 bpm Exercise duration: 6:57 min:sec, 4 Stage Exercise capacity: 7METs Max Blood Pressure: 192/73mmHg Blood Pressure response to exercise: Normal blood pressure response during stress. Chest Pain: No. Arrhythmia: No. ST Change: No. INTERPRETATION Stress EKG Conclusion: Baseline EKG showed sinus rhythm with PVCs. Nondiagnostic changes at peak str ess. No significant arrhythmias. Imaging Protocol IMAGE PROTOCOL: Rest Tc-99m/stress Tc-99m 1 day Rest: Stress: Viability: Radiopharm.Tc99m HcnxpjkjaVl22u Sestamibi Wuia68oYu 31mCi Img Date 05/05/2021 05/05/2021 Inj-Img Pmit80qpp. 60min. Rest Admin Site:IV - Left AntecubitalAdministrator: CHITO Velasco ARRT (R)(N) Stress Admin Site: IV - Left AntecubitalAdministrator: CHITO Velasco ARRT (R)(N) STRESS DATA End Diast. Vol.114.0mlAv. Heart Rate68.0bpm End Syst. Vol.30.0mlCO Index BSA0.0L/min Myocardial Aego347.0gEject. Vtnaylai62.0% Stress Rates Pk. Fill Rate2.69EDV/secLVtime Pk. Fill 164.36msec Pk. Empty Rate3.71ESV/secLVtime Pk. Soxlj561.68msec 1/3 Pk. Fill1.81EDV/sec Stress Scores Regional WT0.00Summed WT0.00 Regional WM0.00Summed WM0.00 Study quality was good. Left Ventricular size was Normal at Rest and Stress. Lung uptake was . Left Ventricular ejection fraction is 70%. The rest and stress images show normal perfusion, normal contraction and thickening. LV Perf. Quant 17 Seg. SSS0.00 17 Seg. SRS1.00 17 Seg. SDS0.00 Stress Defect Extent (% LAD)0.00Rest Defect Extent (% LAD)0.00Rev. Defect Extent (% LAD)0.00 Stress Defect Extent (% LCX) 5.00Rest Defect Extent (% LCX)0.00Rev. Defect Extent (% LCX)0.00 Stress Defect Extent (% RCA)0.00Rest Defect Extent (% RCA)0.00Rev. Defect Extent (% RCA)0.00 Stress Defect Extent (% YONNY)0.90Rest Defect Extent (% YONNY)0.20Rev. Defect Extent (% YONNY)0.00 Conclusion 1. Treadmill exercise cardioisotope stress test did not show any evidence of ischemia or infarct. 2. Normal left ventricular systolic function with ejection fraction calculated at 61%. 3. Low risk for cardiac events. Signed by : Horace Mallory, Electronically Approved : 05/05/2021 16:16:42
== END ==
LOC: NM 08:41
PROVIDERS: ATTEND Internal Medicine Cardiovascular Disease
DX: R06.00 Dyspnea, unspecified (principal)
CPT/HCPCS: 78452; 93017; A9500; 96376

== ENCOUNTER → 2021-06-28 | Outpatient (CLI) | payer MEDICARE | LOC: LAB 11:29 | PROVIDERS: ATTEND Internal Medicine Hematology & Oncology | DX: Z52.9 Donor of unspecified organ or tissue (principal) | CPT/HCPCS: 36415 ==

== ENCOUNTER → 2021-12-21 | Outpatient (CLI) | payer MEDICARE ==
--- NOTE | 2021-12-21 16:38 | CARD ---
MR#: [id number] Date of Study: 12/21/2021 Ordering Physician: ROCHELLE NOGUERA, Referring Physician: ROCHELLE NOGUERA, Tech: Bryson Young [facility] APPROVED REPORT EXAM: Two-dimensional and M-mode echocardiogram with Doppler and color Doppler. Other Information Quality : GoodHR: 74bpm Rhythm : NSR INDICATION Ascending aortic anuerysm 2D DIMENSIONS Left Atrium(2D)3.7 (1.6-4.0cm)IVSd1.2 (0.7-1.1cm) Aortic Root(2D)3.7 (2.0-3.7cm)LVDd4.2 (3.9-5.9cm) LVOT Diameter2.1 (1.8-2.4cm)PWd1.2 (0.7-1.1cm) LA Zvidaj31 (18-58mL)LVDs2.4 (2.5-4.0cm) FS (%) 42.1 %SV56.2 ml Aortic Valve AoV Peak Chidi.174.0cm/sAoV VTI31.5cm AO Peak GR.12.1mmHgLVOT Peak Chidi.106.6cm/s LVOT VTI 23.55cmAO Mean GR.7mmHg BINDU (VMAX)2.84wf4JZR (VTI)2.60cm2 AI P 1/2 [id number] Mitral Valve MV E Hvhpgzrz63.7cm/sMV E Peak Gr.3mmHg MV DECEL [id number] A Ytcnmfbe08.8cm/s MV E Mean Gr.1mmHgE/A Ratio0.9 Pulmonary Valve PV Peak Vpwfxdjy297.1cm/sPV Peak Grad.7mmHg Tricuspid Valve TR P. Yjfatkdd038sq/sTR Peak Gr.15mmHg Pulmonary Vein S1 Rzrpttfh40.7cm/sD2 Pcqqapeo58.1cm/s LEFT VENTRICLE The left ventricle is normal size. There is borderline concentric left ventricular hypertrophy. The l eft ventricular systolic function is normal and the ejection fraction is within normal range. LV ejec tion fraction is 55 to 60%. There is normal LV segmental wall motion. Transmitral Doppler flow patter n is Grade I-abnormal relaxation pattern. No left ventricle thrombus noted on this study. There is no ventricular septal defect visualized. There is no left ventricular aneurysm. There is no mass noted in the left ventricle. RIGHT VENTRICLE The right ventricle is normal size. There is normal right ventricular wall thickness. The right ventr icular systolic function is normal. ATRIA The left atrium size is normal. The right atrium size is normal. AORTIC VALVE The aortic valve is mildly sclerotic. The aortic valve is trileaflet. Doppler and Color Flow revealed mild aortic regurgitation. There is no significant aortic valvular stenosis. There is no aortic valv ular vegetation. MITRAL VALVE The mitral valve is normal in structure and function. There is no evidence of mitral valve prolapse. There is no mitral valve stenosis. Doppler and Color-flow revealed trace mitral regurgitation. TRICUSPID VALVE The tricuspid valve is normal in structure and function. Doppler and Color Flow revealed no tricuspid valve regurgitation noted. There is no tricuspid valve prolapse or vegetation. There is no tricuspid valve stenosis. PULMONIC VALVE The pulmonary valve is normal in structure and function. There is trivial pulmonic regurgitation. The re is no pulmonic valvular stenosis. GREAT VESSELS The aortic root is normal in size. The ascending aorta is mildly dilated. The pulmonary artery is nor mal. The IVC is normal in size and collapses >50% with inspiration. PERICARDIAL EFFUSION There is no pleural effusion. There is no evidence of significant pericardial effusion. Critical Notification Critical Value: No <Conclusion> The left ventricle is normal size. The left ventricular systolic function is normal and the ejection fraction is within normal range. LV ejection fraction is 55 to 60%. There is borderline concentric left ventricular hypertrophy. Doppler and Color Flow revealed mild aortic regurgitation. There is no significant aortic valvular stenosis. Doppler and Color-flow revealed trace mitral regurgitation. Doppler and Color Flow revealed no tricuspid valve regurgitation noted. The ascending aorta is mildly dilated. Signed by : Roman Eugene MD Electronically Approved : 12/21/2021 16:37:56
== END ==
LOC: ECHO 15:36
PROVIDERS: ATTEND Internal Medicine Cardiovascular Disease
DX: I08.8 Other rheumatic multiple valve diseases (principal); I71.2 Thoracic aortic aneurysm, without rupture
CPT/HCPCS: 93306